=== PATIENT | male | born 1955 | race Caucasian/White ===

== ENCOUNTER → 2017-03-19 | Outpatient (REF) ==
--- NOTE | 2017-03-19 14:35 | REP ---
LUMBOSACRAL SPINE: Three AP and lateral views of lumbosacral spine are performed. There is no compression fracture or malalignment with normal lumbar lordosis. There is mild to moderate spurring at L5-S1 with moderate disc space narrowing and subchondral sclerosis at that level. There is minor disc space narrowing and subchondral sclerosis at L4-5. There is sclerosis at the posterior facet joints. The posterior elements are intact. IMPRESSION: Moderate degenerative changes L5-S1. Signed by Chuckie Valenzuela MD 03/19/2017 04:46 P
== END ==
LOC: M SMT 09:54
PROVIDERS: ATTEND Internal Medicine
DX: Z02.71 Encounter for disability determination (principal)